=== PATIENT | male | born 1965 | race Hispanic/Latino ===

== ENCOUNTER 2017-06-10 11:03 | Emergency (ER) | payer OTHER ==
[2017-06-10 11:25] VITALS: BP 125/76; PULSE 89; RESP 20; TEMP 97.8
[2017-06-10] MEDS ORDERED: Lidocaine 1% Inj (20ml) INFIL STA (11:51)
[2017-06-10] MEDS ORDERED: Lidocaine 1% Inj (20ml) ONE (11:53)
--- NOTE | 2017-06-10 12:43 | C.PDOC ---
History Of Present Illness Yogi James is a 51 year old male who presents to the emergency department for laceration to the left 5th finger at work, working with a sheet metal onset prior to arrival. Patient denies any fever or chills. No further medical complaints. PMD: None provided. Time Seen by Provider: 06/10/17 11:41 Chief Complaint (Nursing): Abnormal Skin Integrity History Per: Patient History/Exam Limitations: no limitations Onset/Duration Of Symptoms: Hrs (prior to arrival) Location Of Injury: Right: Hand (5th finger) Past Medical History Reviewed: Historical Data, Nursing Documentation, Vital Signs Vital Signs: Last Vital Signs Temp 97.8 F 06/10/17 11:19 Pulse 89 06/10/17 11:19 Resp 20 06/10/17 11:19 BP 125/76 06/10/17 11:19 Pulse Ox 94 L 06/10/17 12:43 - Medical History PMH: HTN, Hypercholesterolemia Family History: States: Unknown Family Hx - Social History Hx Tobacco Use: No Hx Alcohol Use: No Hx Substance Use: No - Immunization History Hx Tetanus Toxoid Vaccination: Yes (2011) Hx Influenza Vaccination: Yes Hx Pneumococcal Vaccination: No Review Of Systems Except As Marked, All Systems Reviewed And Found Negative. Constitutional: Negative for: Fever, Chills Musculoskeletal: Positive for: Hand Pain (right 5th finger laceration ) Physical Exam - Physical Exam Appears: Well, No Acute Distress Skin: Normal Color, Warm, Dry Eye(s): bilateral: Normal Inspection Neck: Normal, Normal ROM, Supple Respiratory: Normal Breath Sounds Extremity: Normal ROM, Other (dorsum of the left 5th finger. 2 wounds 2cm each through the subcutaneous tissue. No tendons or blood vessels. Normal flexion and extension) Neurological/Psych: Normal Speech, Normal Motor, Normal Sensation ED Course And Treatment O2 Sat by Pulse Oximetry: 97 (RA) Pulse Ox Interpretation: Normal Progress Note: L 5th finger cleaned and digital block with agressive wash with soap and water. sutures 3 + 3 in 2 small wounds 4-0 nylon. normal distal neuro prior and after. Medical Decision Making Medical Decision Making: L 5th finger lacs x 2 Disposition Doctor Will See Patient In The: Office Counseled Patient/Family Regarding: Studies Performed, Diagnosis - Disposition Referrals: [facility] [Outside] [facility] [Outside] Disposition: HOME/ ROUTINE Disposition Time: 12:43 Condition: GOOD Additional Instructions: wash with soap and water daily (on 2nd day) bacitracin ointment daily finger splint to prevent bending/ripping of sutures 2 x 4 x 4-0 placed 06/10/17 Remove sutures day 7 Td UDT No prophylactic abx indicated. Instructions: Laceration (ED) Forms: [facility] (Bulgarian) - Clinical Impression Clinical Impression: Finger laceration - Scribe Statement The provider has reviewed the documentation as recorded by the Mallika Long Provider Attestation: All medical record entries made by the Mallika were at my direction and personally dictated by me. I have reviewed the chart and agree that the record accurately reflects my personal performance of the history, physical exam, medical decision making, and the department course for this patient. I have also personally directed, reviewed, and agree with the discharge instructions and disposition.
[2017-06-10] MEDS ORDERED: Bacitracin 500 Units/gm Oint Foilpak UD ONE (12:44)
[2017-06-10 13:57] VITALS: O2SAT 97
== END 2017-06-10 12:52 | disposition home or self-care (01) ==
LOC: C.ER 11:03
DX: S61.216A Laceration without foreign body of right little finger without damage to nail, initial encounter (principal); X58.XXXA Exposure to other specified factors, initial encounter; Y99.0 Civilian activity done for income or pay